=== PATIENT | female | born 1950 | race Caucasian/White ===

== ENCOUNTER → 2018-02-21 09:08 | Outpatient (CLI) | payer MEDICARE, OTHER, SELFPAY ==
[2018-02-21 09:44] VITALS: PULSE 110; PULSE 122; PULSE 129; PULSE 130; PULSE 131; PULSE 86; PULSE 88; O2SAT 92; O2SAT 93; O2SAT 94; O2SAT 96
--- NOTE | 2018-02-21 11:05 | WT_ITS ---
PSN 6 Minute Walk Test - 6 Minute Walk Test 6 Minute Walk Test: 6 Minute Walk Test PSN:6-Minute Walk Test Start: 02/21/18 09:44 Freq: Status: Active Protocol: [id number] Document 02/21/18 09:44 BERENICE (Rec: 02/21/18 09:46 BERENICE [id number]) 6 Minute Walk Test Date Performed 02/21/18 Time Performed 09:20 Height 4 ft 10.5 in Weight: 67.132 kg Weight in Pounds 148.[address]: Nahun Rogers Assistive device used: None Pre-test Oxygen Delivery Method Room Air Pulse Ox (%) 96 Pulse Rate (60-100 beats/min) 86 Dyspnea Yaniv Scale (0-10) 0 Exertion Yaniv Scale (6-20) 6 1st minute Oxygen Delivery Method Room Air Pulse Ox (%) 93 Pulse Rate (60-100 beats/min) 110 H 2nd minute Oxygen Delivery Method Room Air Pulse Ox (%) 92 Pulse Rate (60-100 beats/min) 122 H 3rd minute Oxygen Delivery Method Room Air Pulse Ox (%) 93 Pulse Rate (60-100 beats/min) 129 H 4th minute Oxygen Delivery Method Room Air Pulse Ox (%) 94 Pulse Rate (60-100 beats/min) 129 H 5th minute Oxygen Delivery Method Room Air Pulse Ox (%) 93 Pulse Rate (60-100 beats/min) 131 H 6th minute Oxygen Delivery Method Room Air Pulse Ox (%) 93 Pulse Rate (60-100 beats/min) 130 H Dyspnea Yaniv Scale (0-10) 3 Exertion Yaniv Scale (6-20) 14 Post-test Oxygen Delivery Method Room Air Pulse Ox (%) 96 Pulse Rate (60-100 beats/min) 88 Full Laps Walked 18 Partial Lap, Number of Tiles Walked 17 Total Distance Walked (ft) 1079 - Interpretation Interpretation: The patient was able to ambulate 1079 feet over the course of 6 minutes on room air with no assistive devices or breaks. The patient did experience significant desaturation from a baseline of 96%, to as low as 92%. However, patient was also noted to be significantly tachycardic with a peak heart rate of 131 bpm. These findings are consistent with a cardiovascular limitation exercise t olerance - Recommendations Recommendations: No supplemental oxygen is indicated at this time. Consider evaluation by cardiology
== END ==
PROVIDERS: Visit Provider Internal Medicine Critical Care Medicine
DX: J45.991 Cough variant asthma (principal)
CPT/HCPCS: 94618

== ENCOUNTER → 2018-07-11 06:59 | Outpatient (CLI) | payer MEDICARE, OTHER, SELFPAY ==
[2018-02-09 09:19] VITALS: BMI 31.3
--- NOTE | 2018-07-11 15:17 | PFTCOMP ---
COMPLETE PULMONARY FUNCTION TEST INTERPRETATION Brief HPI: Patient is a 68 year old female, currently under the care of Dr. Rogers, who presents to [facility] for complete pulmonary function tests secondary to diagnosis of asthma. Respiratory therapist reports good effort and reproducible results. Interpretation: Forced expiration spirometry shows a mild large airways obstructive ventilatory defect with an FEV1 of 97% predicted. There is no significant bronchodilator response by strict ATS criteria, but FEV1 did improve by 160 cc, 11%. Spirograms are of good quality and plateau slowly, indicating slowly emptying areas of the lungs. The respiratory flow volume loop shows decreased expiratory flow rates at all lung volumes consistent with airway obstruction. Lung volumes by body plethysmography show a normal total lung capacity at 3.77 L, 105% predicted. All other lung volumes are within normal limits. Diffusion capacity by carbon monoxide is normal at 76% predicted. The airway resistance is normal. No previous pulmonary function tests were available for review. Impression: Irreversible mild large airways obstructive ventilatory defect with some improvement following bronchodilators.
== END ==
PROVIDERS: Family Provider Family Medicine; PCP Family Medicine; Referring Provider Internal Medicine Critical Care Medicine; Visit Provider Internal Medicine Critical Care Medicine
DX: J45.991 Cough variant asthma (principal)
CPT/HCPCS: 94060; 94726; 94729

== ENCOUNTER → 2019-05-02 09:22 | Outpatient (CLI) | payer MEDICARE, OTHER, SELFPAY ==
[2019-03-06 10:11] VITALS: BMI 32.1
--- NOTE | 2019-05-02 09:25 | CT_ITS ---
STUDY: CT CHEST WITHOUT CONTRAST REASON FOR EXAM: Female, 68 years old. Lung nodule 6mm, cough. Hx arthritis. Denies chest pain or SOB. RADIATION DOSAGE (If Supplied By Facility): CTDIvol = ( 12.21 ) mGy, DLP = ( 390.39 ) mGycm TECHNIQUE: Transaxial imaging was performed without the administration of intravenous contrast material. Multiplanar coronal and sagittal images were reformatted. Individualized dose optimization techniques were used for this CT. COMPARISON: Comparison is made with prior chest radiograph dated February 11, 2016. FINDINGS: Small benign-appearing bilateral axillary lymph nodes. There is a 4.1 mm noncalcified nodule in the medial aspect of the superior segment of the right lower lobe as seen on axial image #40. There is a 6.7 mm noncalcified nodule in the lateral aspect of the right lower lobe as seen on axial image #75. There is also evidence of a 4.6 mm nodule in the lateral aspect of the left lower lobe as seen on axial image #69. There is thickening of the left major fissure. Increased linear markings at the lung bases worse on the right side with mild bronchiectasis and subpleural blebs. There is no demonstrated pleural abnormality. There are calcifications of the coronary arteries. Minimal degree of pericardial thickening. There are multiple small lymph nodes within the mediastinum, which are normal in size and morphology most compatible with reactive lymph hyperplasia. Normal hilar regions. Normal unenhanced pulmonary arteries. There is atherosclerotic calcification of the aortic arch . There are multi-level degenerative changes of the thoracic spine. Small hiatal hernia. The patient is status post cholecystectomy. CT/Chest without Contrast IMPRESSION: Subcentimeter nodules in both lungs as described. A 6 month follow-up examination is suggested. Electronically Signed: Link Kincaid, at 14:02 EST , Service support ,
== END ==
PROVIDERS: Family Provider Family Medicine; PCP Family Medicine; Referring Provider Nurse Practitioner Acute Care; Visit Provider Nurse Practitioner Acute Care
DX: R91.1 Solitary pulmonary nodule (principal)
CPT/HCPCS: 71250